=== PATIENT | male | born 1950 | race Hispanic/Latino ===

== ENCOUNTER → 2017-04-09 | Day surgery (SDC) | payer MEDICARE, OTHER ==
[~2017-04-09] MED LIST: AMBIEN10 MG PO; AREDS EYE VITAMINS; CLINDAMYCIN 600MG/D5W 50ML 50 ML IV ONE; DEXAMETHASONE SOD PHOS INJ 4 MG/ML VIAL ONE; EPHEDRINE SULFATE INJ 50 MG/10 ML SYR ONE; FENTANYL CITRATE/PF 100MCG/2 ML INJ ONE; LEXAPRO20 MG PO; LIDOCAINE HCL 2% LOCAL INJ 5 ML SDV VIAL INJ ONE; MIDAZOLAM HCL 2 MG/2 ML VIAL ONE; NORCO 7.5-3251 EACH PO; ONDANSETRON HCL INJ 2 MG/ML VIAL ONE; PRESERVISION A1 EACH PO; PROPOFOL IV EMULSION 10 MG/ML 20 ML VIAL ONE; SEVOFLURANE INHAL SOLN 250 ML PEN BTL ONE
--- NOTE | 2017-04-09 16:25 | Operative Report ---
DATE OF PROCEDURE: April 09, 2017 PREOPERATIVE DIAGNOSIS: Bilateral carpal tunnel syndrome. POSTOPERATIVE DIAGNOSIS: Bilateral carpal tunnel syndrome. PROCEDURE: Bilateral endoscopic carpal tunnel release. TYPECASTING MACHINE OPERATOR: Gabino Clarke PA-C The patient was brought to the operating room for induction of anesthesia. Throughout this case, my PA's assistance was necessary for retraction of soft tissue and positioning of the extremity. This allows for efficient and technically successful execution of the operation and is considered medically necessary. INDICATIONS: The patient is a 66-year-old gentleman who has a long history of numbness and tingling in his hands. The findings and options have been discussed. Clinic exam and nerve conduction studies are consistent with bilateral carpal tunnel syndrome. He would like to have this surgically released. The risks and benefits have been explained. He states he understands and wishes to proceed. DESCRIPTION OF PROCEDURE: The patient was brought to the operating room and placed under general anesthetic. Both upper extremities were prepped and draped in a sterile manner. A preoperative timeout was performed. Initial attention was directed towards the right upper extremity. The extremity was exsanguinated and the proximal tourniquet was inflated to 250 mmHg. A transverse incision was made over the flexion crease of the right wrist. The palmaris longus was retracted to the radial side of the wound. The flexor retinaculum was elevated and incised. An elevator was used to tease the tenosynovium off of the undersurface of the transverse carpal ligament. Dilators were placed and the hook of the hamate was palpated. The [employer] endoscope was then placed into the carpal tunnel. The undersurface of the transverse carpal ligament was cleanly visualized without evidence of soft tissue interposition. The knife was deployed and the ligament was cut from distal to proximal. A full-thickness cut was noted. The proximal retinaculum was incised under direct visualization using a pair of blunt Metzenbaum scissors. The wound was irrigated and closed with 2 interrupted nylon stitches. A sterile bandage was applied. The tourniquet was deflated. Attention was then directed towards the left side. The same procedure was performed. Again, a sterile bandage was applied. The patient was extubated and transported to the recovery room in stable condition. Job#: [id number]
== END | disposition home or self-care (01) ==
LOC: OR 08:32
PROVIDERS: ATTEND Specialist
DX: G56.02 Carpal tunnel syndrome, left upper limb (principal); G56.01 Carpal tunnel syndrome, right upper limb; F32.9 Major depressive disorder, single episode, unspecified; F41.9 Anxiety disorder, unspecified; Z01.810 Encounter for preprocedural cardiovascular examination
CPT/HCPCS: 29848; 93005; J1100; J2001; J2250; J2405

== ENCOUNTER 2022-01-19 16:39 | Emergency (ER) | payer MEDICARE, OTHER ==
[~2022-01-19] VITALS: Ht 160 cm; Wt 56.7 kg
[~2022-01-19 16:39] MED LIST changes: -CLINDAMYCIN 600MG/D5W 50ML 50 ML IV ONE; -DEXAMETHASONE SOD PHOS INJ 4 MG/ML VIAL ONE; -EPHEDRINE SULFATE INJ 50 MG/10 ML SYR ONE; -FENTANYL CITRATE/PF 100MCG/2 ML INJ ONE; -LIDOCAINE HCL 2% LOCAL INJ 5 ML SDV VIAL INJ ONE; -MIDAZOLAM HCL 2 MG/2 ML VIAL ONE; -ONDANSETRON HCL INJ 2 MG/ML VIAL ONE; -PROPOFOL IV EMULSION 10 MG/ML 20 ML VIAL ONE; -SEVOFLURANE INHAL SOLN 250 ML PEN BTL ONE
[2022-01-19] MEDS ORDERED: ACETAMINOPHEN 325 MG TAB PO ONE (18:00)
[2022-01-19] MEDS ORDERED: ULTRACET TABLE1 EACH PO (19:18)
== END 2022-01-19 19:31 | disposition home or self-care (01) ==
LOC: ER 17:08
DX: R10.2 Pelvic and perineal pain (principal); S76.011A Strain of muscle, fascia and tendon of right hip, initial encounter; W06.XXXA Fall from bed, initial encounter; Y93.84 Activity, sleeping; Y92.89 Other specified places as the place of occurrence of the external cause; F41.9 Anxiety disorder, unspecified; H35.30 Unspecified macular degeneration; Z96.641 Presence of right artificial hip joint
CPT/HCPCS: 72192; 99283

== ENCOUNTER 2023-01-09 09:00 | Outpatient (RCR) | payer MEDICARE ==
[~2023-01-09 09:00] MED LIST changes: +ULTRACET TABLE1 EACH PO
== END 2023-01-29 ==
LOC: PT 09:00
PROVIDERS: ATTEND Physician Assistant
DX: M75.101 Unspecified rotator cuff tear or rupture of right shoulder, not specified as traumatic (principal)

== ENCOUNTER → 2024-01-29 | Day surgery (SDC) | payer MEDICARE ==
[2024-01-24 09:11] LABS: BASOPHILS # (AUTO) 0.1 (0.0-0.1); BASOPHILS % 1.3 % (0.0-1.0); EOSINOPHILS # (AUTO) 0.2 (0.0-0.4); HEMATOCRIT 41.5 % (38.2-49.6); HEMOGLOBIN 13.8 g/dL (14.0-18.0); LYMPHOCYTES # (AUTO) 1.1 (1.0-3.2); LYMPHOCYTES % 27.6 % (18.0-39.1); MEAN CORPUSCULAR HEMOGLOBIN 33.6 pg (28-32); MEAN CORPUSCULAR HGB CONC 33.3 g/dL (31-35); MONOCYTES # (AUTO) 0.5 (0.2-0.8); MONOCYTES % 12.9 % (4.4-11.3); NEUTROPHILS % 52.9 % (38.7-80.0); PLATELET COUNT 228 x10e3/uL (140-360); RED BLOOD COUNT 4.11 x10e6/uL (4.3-5.7); RED CELL DISTRIBUTION WIDTH 13.6 % (11.7-14.4); WHITE BLOOD COUNT 3.81 x10e3/uL (4.8-10.8)
[2024-01-24 09:28] LABS: CALCIUM 9.5 mg/dL (8.4-10.2); CREATININE, SERUM 0.8 mg/dL (0.72-1.25)
[~2024-01-29] MED LIST changes: +ACETAMINOPHEN 1000 MG/100 ML 100 ML IV ONE; +BACITRACIN ZINC 15 GM OINT ONE; +BUPIVACAINE HCL 0.5% INJ 30 ML VIAL INJ ONE; +BUPROPION XL150 MG PO; +MUPIROCIN 2% OINT 22 GM TUBE ONE; +ONE DAILY FOR1 EAC1
[2024-01-29] MEDS: LACTATED RINGER'S 1,000 ML ONE (10:58)
[2024-01-29] MEDS: CLINDAMYCIN PHOS 900MG/ 50ML 50 ML IV ONE (10:58)
[2024-01-29] MEDS: HYDROCODONE/APAP 5MG-325MG TAB ONE (14:20)
[2024-01-29 14:40] VITALS: BP 169/93; PULSE 74; RESP 16; O2SAT 98
== END | disposition home or self-care (01) ==
LOC: OR 10:17
PROVIDERS: ATTEND Podiatrist Foot & Ankle Surgery
DX: S96.811A Strain of other specified muscles and tendons at ankle and foot level, right foot, initial encounter (principal); I10 Essential (primary) hypertension; E78.5 Hyperlipidemia, unspecified; K21.9 Gastro-esophageal reflux disease without esophagitis; W01.0XXA Fall on same level from slipping, tripping and stumbling without subsequent striking against object, initial encounter; Z88.0 Allergy status to penicillin; Z01.810 Encounter for preprocedural cardiovascular examination; Z01.812 Encounter for preprocedural laboratory examination; Z01.818 Encounter for other preprocedural examination; Z79.899 Other long term (current) drug therapy
CPT/HCPCS: 28200; 36415; 71046; 76000; 80048; 85025; 88304; 93005; C1713; J0131; J7121